=== PATIENT | female | born 1995 | race Two or more races ===

== ENCOUNTER 2023-06-25 16:12 | Emergency (ER) | payer OTHER, MEDICAID ==
[~2023-06-25] VITALS: Ht 162.6 cm; Wt 72.9 kg
[2023-06-25 16:19] VITALS: BP 132/75; TEMP 98.3; O2SAT 100
[2023-06-25] MEDS ORDERED: [UNRECOGNIZED DRUG - CODE] PO (16:25)
[2023-06-25] MEDS ORDERED: COLA100C5 PO (16:25)
[2023-06-25] MEDS ORDERED: LEVO112T2 PO (16:25)
== END 2023-06-25 16:39 | disposition admitted as inpatient to this hospital (09) ==
LOC: EDBD 16:12 → M ED 16:12
DX: O9A.213 Injury, poisoning and certain other consequences of external causes complicating pregnancy, third trimester (principal); V43.62XA Car passenger injured in collision with other type car in traffic accident, initial encounter; Y92.410 Unspecified street and highway as the place of occurrence of the external cause; Y93.89 Activity, other specified; Y99.8 Other external cause status; Z3A.31 31 weeks gestation of pregnancy

== ENCOUNTER 2023-06-25 16:45 | Outpatient (CLI) | payer MEDICAID, OTHER ==
[~2023-06-25] VITALS: Ht 162.6 cm; Wt 68.9 kg
[~2023-06-25 16:45] MED LIST: COLA100C5 PO; LEVO112T2 PO; [UNRECOGNIZED DRUG - CODE] PO
[2023-06-25 16:48] VITALS: BP 109/68; O2SAT 98
[2023-06-25] MEDS ORDERED: HOME MED LIST COMPLETE! XX SCH (16:55)
[2023-06-25 17:05] LABS: HEMATOCRIT 33.1 % (36.0-47.0); HEMOGLOBIN 10.6 g/dl (12.0-15.5); MEAN CORPUSCULAR HEMOGLOBIN 27.7 pg (27.0-33.0); MEAN CORPUSCULAR VOLUME 86.6 fl (80.0-96.0); PLATELET COUNT, AUTOMATED 289 10^3/uL (150-450); RED BLOOD COUNT 3.82 10^6/uL (4.00-5.40); WHITE BLOOD COUNT 9.7 10^3/uL (4.0-10.0)
[2023-06-25 17:16] LABS: INR 1.19; PROTHROMBIN TIME 14.8 SECONDS (12.5-14.5)
[2023-06-25 17:17] LABS: PARTIAL THROMBOPLASTIN TIME 31.5 SECONDS (24.8-34.2)
[2023-06-25 18:02] VITALS: BP 99/60
[2023-06-25 20:58] VITALS: BP 102/61
== END 2023-06-25 21:12 | disposition home or self-care (01) ==
LOC: M LDO 16:45
PROVIDERS: ATTEND Advanced Practice Midwife
DX: Z04.1 Encounter for examination and observation following transport accident (principal); O9A.213 Injury, poisoning and certain other consequences of external causes complicating pregnancy, third trimester; V43.62XA Car passenger injured in collision with other type car in traffic accident, initial encounter; Y92.410 Unspecified street and highway as the place of occurrence of the external cause; Y93.89 Activity, other specified; Y99.8 Other external cause status; Z3A.31 31 weeks gestation of pregnancy
CPT/HCPCS: 59025; 85027; 85384; 85460; 85610; 85730; G0463

== ENCOUNTER 2023-09-12 02:52 | Emergency (ER) | payer MEDICAID, SELFPAY ==
[~2023-09-12] VITALS: Ht 162.6 cm; Wt 63.2 kg
[2023-09-12 07:50] VITALS: BP 107/56; TEMP 97.8; O2SAT 99
== END 2023-09-12 07:58 | disposition home or self-care (01) ==
LOC: M ED 02:52
DX: O90.89 Other complications of the puerperium, not elsewhere classified (principal); R10.2 Pelvic and perineal pain; Z79.899 Other long term (current) drug therapy

== ENCOUNTER → 2023-11-10 | Outpatient (REF) | payer MEDICAID, SELFPAY ==
[2023-11-11 15:19] LABS: BASO # 0.1 10^3/uL (0.0-0.2); BASO % 0.9 % (0.0-1.0); EOS # 0.1 10^3/uL (0.0-0.5); EOS % 0.9 % (0.0-3.0); HEMATOCRIT 39.2 % (36.0-47.0); HEMOGLOBIN 12.7 g/dl (12.0-15.5); LYMPH # 2.7 10^3/uL (1.5-5.0); LYMPH % 39.1 % (24.0-44.0); MEAN CORPUSCULAR HEMOGLOBIN 27.2 pg (27.0-33.0); MEAN CORPUSCULAR HGB CONC 32.4 g/dl (32.0-36.5); MEAN CORPUSCULAR VOLUME 83.9 fl (80.0-96.0); MONO # 0.5 10^3/uL (0.0-0.8); MONO % 7.6 % (2.0-8.0); NEUTROPHILS # 3.6 10^3/uL (1.5-8.5); NEUTROPHILS % 51.2 % (36.0-66.0); PLATELET COUNT, AUTOMATED 360 10^3/uL (150-450); RED BLOOD COUNT 4.67 10^6/uL (4.00-5.40)
[2023-11-11 15:31] LABS: FERRITIN 10.5 NG/ML (7.3-270.7)
[2023-11-11 15:38] LABS: BLOOD UREA NITROGEN 9 MG/DL (9-23); CALCIUM LEVEL 9.6 MG/DL (8.5-10.1); CARBON DIOXIDE LEVEL 26 MMOL/L (20-31); CHLORIDE LEVEL 107 MMOL/L (98-107); CREATININE FOR GFR 0.46 MG/DL (0.55-1.30); GLOMERULAR FILTRATION RATE > 60.0 (>60); GLUCOSE, FASTING 84 MG/DL (60-100); IRON (FE) 45 UG/DL (50-170); PERCENT SATURATION 11.3 % (13.2-45.0); POTASSIUM SERUM 4.3 MMOL/L (3.5-5.1); SODIUM LEVEL 140 MMOL/L (136-145); TOTAL IRON BINDING CAPACITY 400 UG/DL (250-425)
== END ==
LOC: M LAB REF 14:42
PROVIDERS: ATTEND Nurse Practitioner Family
DX: G47.00 Insomnia, unspecified (principal); R53.83 Other fatigue; E61.1 Iron deficiency; E03.9 Hypothyroidism, unspecified

== ENCOUNTER → 2023-12-22 | Outpatient (REF) | payer MEDICAID, SELFPAY | LOC: M LAB REF 12:35 | PROVIDERS: ATTEND Nurse Practitioner Family | DX: R10.9 Unspecified abdominal pain (principal) ==

== ENCOUNTER → 2024-05-06 | Outpatient (REF) | payer MEDICAID ==
[2024-05-06 17:10] LABS: MAGNESIUM LEVEL 1.8 MG/DL (1.8-2.4)
[2024-05-06 17:14] LABS: THYROID STIMULATING HORMONE 1.98 uIU/ML (0.55-4.78)
== END ==
LOC: M LAB REF 16:33
PROVIDERS: ATTEND Nurse Practitioner Family
DX: E03.9 Hypothyroidism, unspecified (principal); R51.9 Headache, unspecified

== ENCOUNTER → 2024-08-02 | Outpatient (REF) | payer MEDICAID ==
[2024-08-03 14:11] LABS: Trichomonas vaginalis (AMP) NOT DETECTED (NEGATIVE)
[2024-08-03 14:36] LABS: GC DNA AMPLIFICATION NEGATIVE (NEGATIVE)
== END ==
LOC: M LAB REF 12:17
PROVIDERS: ATTEND Pediatrics
DX: N89.8 Other specified noninflammatory disorders of vagina (principal); R82.90 Unspecified abnormal findings in urine

== ENCOUNTER → 2024-08-23 | Outpatient (REF) | payer MEDICAID | LOC: M LAB REF 17:55 | PROVIDERS: ATTEND Nurse Practitioner Family | DX: N76.0 Acute vaginitis (principal) ==

== ENCOUNTER → 2024-08-30 | Outpatient (REF) | payer MEDICAID, SELFPAY ==
[2024-08-30 18:50] LABS: PERCENT SATURATION 7.1 % (13.2-45.0)
[2024-08-30 18:53] LABS: FERRITIN 1.8 NG/ML (7.3-270.7); THYROID STIMULATING HORMONE 1.529 uIU/ML (0.55-4.78)
[2024-08-30 18:57] LABS: BASO # 0.1 10^3/uL (0.0-0.2); BASO % 0.8 % (0.0-1.0); EOS % 0.2 % (0.0-3.0); HEMATOCRIT 34.8 % (36.0-47.0); LYMPH # 2.4 10^3/uL (1.5-5.0); LYMPH % 40.3 % (24.0-44.0); MEAN CORPUSCULAR HEMOGLOBIN 26.4 pg (27.0-33.0); MEAN CORPUSCULAR HGB CONC 31.6 g/dl (32.0-36.5); MEAN CORPUSCULAR VOLUME 83.5 fl (80.0-96.0); MONO # 0.4 10^3/uL (0.0-0.8); MONO % 5.8 % (2.0-8.0); NEUTROPHILS # 3.2 10^3/uL (1.5-8.5); NEUTROPHILS % 52.7 % (36.0-66.0); PLATELET COUNT, AUTOMATED 316 10^3/uL (150-450); RED BLOOD COUNT 4.17 10^6/uL (4.00-5.40); WHITE BLOOD COUNT 6.1 10^3/uL (4.0-10.0)
== END ==
LOC: M LAB REF 17:23
PROVIDERS: ATTEND Nurse Practitioner Family
DX: E03.9 Hypothyroidism, unspecified (principal); E61.1 Iron deficiency

== ENCOUNTER → 2024-09-14 | Outpatient (REF) | payer MEDICAID ==
[2024-09-14 18:20] LABS: IMMUNOGLOBULIN A 294.2 MG/DL (40-350)
[2024-09-14 18:23] LABS: FOLATE 13.5 NG/ML (>5.4)
== END ==
LOC: M LAB REF 17:49
PROVIDERS: ATTEND Nurse Practitioner Family
DX: E61.1 Iron deficiency (principal)

== ENCOUNTER → 2024-10-05 | Outpatient (CLI) | payer MEDICAID, SELFPAY ==
[2024-10-05 18:50] LABS: BASO # 0.1 10^3/uL (0.0-0.2); BASO % 0.9 % (0.0-1.0); EOS % 0.1 % (0.0-3.0); HEMOGLOBIN 11.1 g/dl (12.0-15.5); LYMPH % 39.9 % (24.0-44.0); MEAN CORPUSCULAR HEMOGLOBIN 25.6 pg (27.0-33.0); MEAN CORPUSCULAR HGB CONC 30.8 g/dl (32.0-36.5); MEAN CORPUSCULAR VOLUME 83.1 fl (80.0-96.0); MONO # 0.5 10^3/uL (0.0-0.8); MONO % 5.9 % (2.0-8.0); NEUTROPHILS % 53.1 % (36.0-66.0); PLATELET COUNT, AUTOMATED 292 10^3/uL (150-450); RED BLOOD COUNT 4.33 10^6/uL (4.00-5.40); WHITE BLOOD COUNT 7.6 10^3/uL (4.0-10.0)
[2024-10-05 19:00] LABS: IRON (FE) 34 UG/DL (50-170)
[2024-10-05 19:01] LABS: ALBUMIN 4.1 G/DL (3.2-5.2); ALKALINE PHOSPHATASE 57 U/L (35-104); ALT/SGPT 39 U/L (7.0-40); AST/SGOT 26 U/L (<34); BILIRUBIN,TOTAL 0.4 MG/DL (0.3-1.2); BLOOD UREA NITROGEN 13 MG/DL (9-23); CALCIUM LEVEL 9.1 MG/DL (8.5-10.1); CARBON DIOXIDE LEVEL 27 MMOL/L (20-31); CHLORIDE LEVEL 103 MMOL/L (98-107); CREATININE FOR GFR 0.45 MG/DL (0.55-1.30); FOLATE 12.8 NG/ML (>5.4); GLOMERULAR FILTRATION RATE > 90.0 (>60); GLUCOSE, FASTING 85 MG/DL (60-100); MAGNESIUM LEVEL 1.8 MG/DL (1.8-2.4); SODIUM LEVEL 140 MMOL/L (136-145); TOTAL PROTEIN 7.2 G/DL (5.7-8.2); VITAMIN B12 LEVEL 421 PG/ML (211-911)
== END ==
LOC: M RAD 17:20
PROVIDERS: ATTEND Physician Assistant
DX: R00.2 Palpitations (principal)

== ENCOUNTER → 2024-10-07 | Outpatient (CLI) | payer MEDICAID | LOC: M EKG 12:06 | PROVIDERS: ATTEND Physician Assistant | DX: R00.2 Palpitations (principal); Z53.9 Procedure and treatment not carried out, unspecified reason ==

== ENCOUNTER → 2025-05-09 | Outpatient (REF) | payer MEDICAID ==
[~2025-05-09] MED LIST changes: +BENA25CA4 PO; +FERR325T19; +THERTAB52 PO; +[UNRECOGNIZED DRUG - OTHER]
== END ==
LOC: M LAB REF 14:46
PROVIDERS: ATTEND Nurse Practitioner Family
DX: E03.9 Hypothyroidism, unspecified (principal)